=== PATIENT | female | born 1995 | race Caucasian/White ===

== ENCOUNTER 2016-12-28 09:59 | Emergency (ER) | payer MEDICAID ==
[2016-12-28 12:24] LABS: BASOPHILS 0.3 % (0.0-2.0); EOSINOPHILS 2.5 % (0-7); HEMATOCRIT 40.7 % (36.0-48.0); HEMOGLOBIN 13.4 g/dL (12-16); IMMATURE GRANULOCYTES 0.2 % (0-5); LYMPHOCYTES 35.7 % (15-50); MCH 29.1 pg (26.0-34.0); MCHC 32.9 g/dL (31.0-37.0); MCV 88.5 fL (80.0-100.0); MEAN PLATELET VOLUME 10.8 fL (7.4-10.4); MONOCYTES 8.9 % (2-11); NEUTROPHILS 52.4 % (40-80); PLATELET COUNT 351 10x3/uL (130-400); RDW 13.5 % (11.5-14.5); WBC 6.5 10x3/uL (4.8-10.8)
[2016-12-28 12:29] LABS: UDS - AMPHET NEGATIVE QUAL (NEGATIVE); UDS - BARB NEGATIVE QUAL (NEGATIVE); UDS - BENZO NEGATIVE QUAL (NEGATIVE); UDS - COCAINE NEGATIVE QUAL (NEGATIVE); UDS - METH NEGATIVE QUAL (NEGATIVE); UDS - OPIATE NEGATIVE QUAL (NEGATIVE); UDS - PCP NEGATIVE QUAL (NEGATIVE); UDS - THC POSITIVE QUAL (NEGATIVE)
[2016-12-28 12:33] LABS: APPEARANCE SLT CLOUDY (CLEAR); BILIRUBIN NEGATIVE (NEGATIVE); COLOR YELLOW (YELLOW); GLUCOSE NEGATIVE (NEGATIVE); KETONE NEGATIVE (NEGATIVE); LEUKOCYTE ESTERASE 1+ (NEGATIVE); NITRITE POSITIVE (NEGATIVE); PROTEIN NEGATIVE (NEGATIVE); SPECIFIC GRAVITY 1.015 (1.005-1.020); UROBILINOGEN NORMAL (NORMAL)
[2016-12-28 12:34] LABS: HCG SERUM NEGATIVE (NEGATIVE)
[2016-12-28 12:34] LABS: BACTERIA MANY /hpf (NONE SEEN); EPITHELIAL CELLS 0-5 /hpf (0-5); MUCUS <1+ /lpf (NONE SEEN); RED CELLS - URINE 0-5 /hpf (0-5)
[2016-12-28 12:42] LABS: ALBUMIN 3.9 g/dL (3.4-5.0); ALKALINE PHOSPHATASE 73 U/L (46-116); ALT (SGPT) 21 U/L (10-68); CALC OSMOLALITY 280 mosm/kg (275-300); CALCIUM 8.7 mg/dL (8.5-10.1); CARBON DIOXIDE 26.5 mmol/L (21.0-32.0); CHLORIDE - SERUM 106 mmol/L (98-107); CREATININE - SERUM 0.9 mg/dL (0.6-1.3); GLUCOSE 87 mg/dL (74-106); POTASSIUM - SERUM 4.1 mmol/L (3.5-5.1); PROTEIN - SERUM 7.5 g/dL (6.4-8.2); SODIUM 142 mmol/L (136-145); UREA NITROGEN 9 mg/dL (7-18); eGFR NON AFRICAN AMERICAN 85 mL/min (90-120)
== END 2016-12-28 19:15 | disposition short-term general hospital (02) ==
LOC: D.ER 09:59
PROVIDERS: Physician Assistant
DX: F33.9 Major depressive disorder, recurrent, unspecified (principal); F84.5 Asperger's syndrome